=== PATIENT | female | born 1985 | race Caucasian/White ===

== ENCOUNTER → 2020-10-28 04:08 | Outpatient (CLI) | payer OTHER, SELFPAY ==
[2020-10-28 20:12] LABS: SARS-CoV-2 RNA PCR Negative
== END ==
PROVIDERS: Physician Assistant; PCP Family Medicine; Visit Provider Family Medicine
DX: R07.89 Other chest pain (principal); Z20.822 Contact with and (suspected) exposure to COVID-19
CPT/HCPCS: C9803; U0003; U0005

== ENCOUNTER → 2020-11-23 15:52 | Outpatient (CLI) | payer OTHER, SELFPAY ==
--- NOTE | ~2020-11-23 | MM_ITS ---
EXAMINATION: MM screening ayan BI w elvira HISTORY: Screening TECHNIQUE: Craniocaudal and mediolateral oblique 3-D tomosynthesis images were obtained and synthetic 2-D images were generated. CAD analysis was submitted and interpreted. COMPARISON: No prior mammogram is available for comparison at this institution. BREAST PARENCHYMAL COMPOSITION: The breasts are heterogeneously dense, which may obscure small masses . FINDINGS: There is no evidence of suspicious mass, calcification, or architectural distortion to sugg est malignancy in either breast. There has been no suspicious interval change. IMPRESSION: 1. No mammographic evidence of malignancy. 2. Recommend routine screening mammography in one year. BI-RADS Category 1: Negative Reviewed, dictated and finalized at location A.
== END ==
PROVIDERS: PCP Family Medicine; Visit Provider Family Medicine
DX: Z12.31 Encounter for screening mammogram for malignant neoplasm of breast (principal)
CPT/HCPCS: 77063; 77067

== ENCOUNTER 2024-07-28 15:14 | Outpatient (CLI) | payer OTHER, SELFPAY ==
--- NOTE | ~2024-07-28 | MM_ITS ---
EXAMINATION: MM screening ayan BI w elvira HISTORY: Screening TECHNIQUE: Craniocaudal and mediolateral oblique 3-D tomosynthesis images were obtained and synthetic 2-D images were generated. CAD analysis was submitted and interpreted. COMPARISON: No prior mammogram is available for comparison at this institution. BREAST PARENCHYMAL COMPOSITION: Dense: The breasts are heterogeneously dense, which may obscure small masses FINDINGS: There is no evidence of suspicious mass, calcification, or architectural distortion to sugg est malignancy in either breast. There has been no suspicious interval change. IMPRESSION: 1. No mammographic evidence of malignancy. 2. Recommend routine screening mammography in one year. BI-RADS Category 1: Negative Reviewed, dictated and finalized at location B.
--- OUTSIDE RECORDS SUMMARY | 2024-07-28 15:18 | XMS_ITS | Clinical Summary ---
Author Organization [facility] Virtual Care Address [address] [place] [phone] Phone Care Team Providers Care Stranner Name Role Phone Kyle Urena MD Primary Care Provider Allergies No known active allergies Medications ALBUTEROL, BULK, MISC 5 Active fexofenadine (Keiko Allergy) 180 mg tablet 3 Active om 0-bll-ttc-B12-F P-J3-auubduf 500 mg-500 mcg -1 mg-12.5 mg capsule Take by mouth Active calcium carb/D3/magnesi um/zinc (calcium carb-D3-mag llz93-dxcj) [phone] ud-ktdu-kk-mg tablet Take by mouth Active busPIRone (BUSPAR) 5 mg tabletIndicatio ns:Generalized Anxiety Disorder Take 1 tablet (5 mg total) by mouth 3 (three) times a day Active cetirizine (ZyrTEC) 10 mg chewable tablet Take 1 tablet (10 mg total) by mouth daily Active fluticasone propionate (FLONASE) 50 mcg/actuation nasal spray Administer 1 spray into each nostril daily Active amoxicillin-cla vulanate (AUGMENTIN) 875-125 mg per tablet Take 1 tablet by mouth 2 (two) times a day for 10 days 20 tablet 5 08/06/19 25 Active mupirocin (BACTROBAN) 2 % ointment Apply topically 3 (three) times a day 22 g 5 Active Active Problems Problem Noted Date Diagnosed Date Symptomatic reticular veins 09/16/2023 Assessment & Plan (09/16/2023 1:10 PM CDT): Area painful reticular vein to the right posterior thigh. No obvious varicosities. Will need a referral to Dr. Gustafson for sclerotherapy. Encounters Date Type Department Care Team Description 07/27/2024 9:45 AM CDT Ancillary Procedure [facility] Imaging at [address] [phone] Dog bite of right hand, initial encounter 07/27/2024 Results Follow-Up [facility]ient Care at [address] [phone] Britta Hernadez PA XR Hand Right 3+ Vw 07/26/2024 10:45 AM CDT Office Visit [facility] Convenient Care at [address] [phone] Britta Hernadez PA Dog bite of right hand, initial encounter (Primary Dx) from Last 3 Months Immunizations Immunization Administration Dates Next Due Tdap 07/26/2024 Surgical History Surgery Date Site/Laterality Comments BREAST SURGERY reduction Medical History Medical History Date Comments Allergic Asthma Social History Tobacco Use Types Packs/Day Years Used Date Smoking Tobacco: Never Smokeless Tobacco: Never Tobacco Cessation:Counseling Given: Not Answered Comments Unknown Sex and Gender Information Value Date Recorded Sex Assigned at Not on file 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 Gender Identity Female 07/11/2022 8:25 AM CDT Sexual Orientation Choose not to disclose 2022 8:25 AM CDT Obstetrics History Last Filed Vital Signs Vital Sign Reading Time Taken Comments Blood Pressure 102/72 07/26/2024 10:23 AM CDT Pulse 95 07/26/2024 10:23 AM CDT Temperature 37 C (98.6 F) 07/26/2024 10:23 AM CDT Respiratory Rate 20 07/26/2024 10:23 AM CDT Oxygen Saturation 99% 07/26/2024 10:23 AM CDT Inhaled Oxygen Concentration - - Weight 59 kg (130 lb) 07/26/2024 10:23 AM CDT Height 154.9 cm (5' 1 ) 07/23/2022 1:13 PM CDT Body Mass Index 24.56 07/23/2022 1:13 PM CDT Plan of Treatment Health Maintenance Due Date Last Done Comments Cervical Cancer Screening 1984 Depression Screening 1984 Hepatitis C Screening 1984 Varicella Vaccines (1 of 2 - 13+ 2-dose series) 1997 Hepatitis B Screening 2002 Regular Well Visit/Exam 18-64 2002 Covid-19 Vaccine (4 - 2023-2 5 season) 2023 01/28/2021, 05/14/2020, 04/06/2020 DTaP/Tdap/Td Vaccine (2 - Td or Tdap) 07/26/2034 07/26/2024 Influenza Vaccine Completed 01/03/2024, 02/06/2015 HPV Vaccines Aged Out No longer eligi ble based on patient's age to complete this topic Pneumococcal vaccine <65 Aged Out No longer eligible based on patient's age to complete this topic Procedures Procedure Name Priority Date/Time Associated Diagnosis Comments XR HAND RIGHT 3 OR MORE VIEWS Schedule Routine, Read Routine (OP Routine) 07/27/2024 9:27 AM CDT Dog bite of right hand, initial encounter from Last 3 Months Results * XR Hand Right 3+ Vw (07/27/2024 9:27 AM CDT) Anatomical Region Laterality Modality Upper Extremities, Hand Right Digital Radiography 07/27/2024 1:40 PM CDT Narrative 07/27/2024 1:41 PM CDT EXAM DESCRIPTION: XR HAND RIGHT 3 OR MORE VIEWS REASON FOR STUDY: dog bite Pt complains of 3rd and 4th digit pain after a dog bite x 2 days ago. No prior fx or surgery TECHNIQUE: Three views COMPARISON: None available FINDINGS: No acute fracture or dislocation. No lytic or destructive process. Joint spaces are maintained. Soft tissues unremarkable without radiopaque foreign body. IMPRESSION: No acute findings right hand. THIS IS AN ELECTRONICALLY VERIFIED FINAL REPORT 07/27/2024 1:41 PM - Electronically signed by Carlos Cohn M.D. RB T: Report ID: [id number] Reading Location: [id number] Procedure Note Carlos Cohn MD - 07/27/2024 EXAM DESCRIPTION: XR HAND RIGHT 3 OR MORE VIEWS REASON FOR STUDY: dog bite Pt complains of 3rd and 4th digit pain after a dog bite x 2 days ago. Noprior fx or surgery TECHNIQUE: Three views COMPARISON: None available FINDINGS: No acute fracture or dislocation. No lytic or destructive process. Joint spaces are maintained. Soft tissues unremarkable without radiopaque foreign body. IMPRESSION: No acute findings right hand. THIS IS AN ELECTRONICALLY VERIFIED FINAL REPORT 07/27/2024 1:41 PM - Electronically signed by Carlos JONES T: Report ID: [id number] Reading Location: [id number] [facility] XR PROCEDURES Final Result from Last 3 Months Insurance [employer] CIGNA Care Teams Stranner Relationship Specialty Start Date End Date Kyle Urena MD [address] [address] PCP - General Family Medicine 09/03/23
--- OUTSIDE RECORDS SUMMARY | 2024-07-28 15:18 | XMS_ITS | Encounter Summary ---
Author Organization [facility] Healthcare Address [address] [place] [address] Care Team Providers Care Source Water Protection Specialist Name Role Phone Kyle Urena MD Primary Care Provider Reason for Visit * Diagnostic Imaging (Routine) - Closed Specialty Diagnoses / Procedures Referred By Contac t Referred To Contact Diagnoses Dog bite of right hand, initial encounter Procedures XR Hand Right 3+ Vw Britta Hernadez PA [address] [place] [id number] Phone: tel: fax: [facility] Medical Group Referral ID Status Reason Start Date Expiration Date Visits Re quested Visits Authorized [id number] Closed 07/26/2024 08/25/2025 1 1 Encounter Details Date Type Department Care Team (Latest Contact Info) Description 07/27/2024 9:45 AM CDT Ancillary Procedure [facility] Medical Group Imaging at [address] [phone] Dog bite of right hand, initial encounter Social History Tobacco Use Types Packs/Day Years Used Date Smoking Tobacco: Never Smokeless Tobacco: Never Comments Unknown Sex and Gender Information Value Date Recorded Sex Assigned at Not on file 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 RB T: Report ID: [id number] Reading Location: [id number] Procedure Note Carlos Cohn MD - 07/27/2024 [...] Carlos Cohn M.D. RB T: Report ID: [id number] Reading Location: [id number] [facility] XR PROCEDURES Final Result documented in this encounter Visit Diagnoses Diagnosis Dog bite of right hand, initial encounter documented in this encounter Care Teams Source Water Protection Specialist Relationship Specialty Start Date End Date Kyle Urena MD [address] [facility] [address] [place] [address] PCP - General Family Medicine 09/03/23 documented as of this encounter
--- OUTSIDE RECORDS SUMMARY | 2024-07-28 15:18 | XMS_ITS | Clinical Summary ---
Author Organization [facility] [address] - 2022 Address [address] [facility] [address] [place] [address] Phone Care Team Providers Care Paediatric Surgeon Name Role Phone Kyle Urena MD Primary Care Provider [phone] Social History Tobacco Use Types Packs/Day Years Used Date Smoking Tobacco: Never Assessed Comments Unknown Sex and Gender Information Value Date Recorded Sex Assigned at Not on file Legal Sex Female 10:17 AM CDT Gender Identity Not on file Sexual Orientation Not on file Plan of Treatment Health Maintenance Due Date Last Done Comments DTAP/TDAP/TD VACCINES (1 - Tdap) 07/29/2003 HEPATITIS B VACCINES (1 of 3 - 19+ 3-dose series) 07/29/2003 HPV/Cotest (21-29) 2005 CERVICAL CANCER SCREENING 2014 HPV/Cotest (30-65) 2014 PAP SMEAR 2014 INFLUENZA VACCINE (#1) 2023 BREAST CANCER SCREENING 2024 HPV VACCINES Aged Out No longer eligi ble based on patient's age to complete this topic Insurance [facility] OPEN ACCESS HMO RX ALLWIN DATA Medicare Part B Care Teams Paediatric Surgeon Relationship Specialty Start Date End Date Kyle Urena MD PCP - General Family Practice 08/02/15
--- OUTSIDE RECORDS SUMMARY | 2024-07-28 15:18 | XMS_ITS | Continuity of Care Document ---
Author Organization [facility] Address [address] [place] [address] Phone Care Team Providers Care Automobile Locator Name Role Phone Unavailable Unavailable Unavailable Advance Directives Directive Yes / No Effective Date File Name No Information Encounters Encounter Description Practice Location Reason(s) For Visit Diagnoses Date Provider Providers Copied on Encounter [facility], [address] [facility], [place], [place], [id number], [place] tel:[phone] [facility] No Information No Information Referring Provider: VIK Patel, [address], [place], [address]. tel:[phone] Family History Family Member Type Diagnosis Age At Onset No Information Payers Payer name Insurance type Covered democrat ID Authoriza tion(s) No Information Social History Type Description Quantity Date Captured Comments Sex Female Smoking Status No Information Chief Complaint And Reason For Visit No Information History Of Present Illness Encounter Date Complaint History Of Prese nt Illness No Information Instructions Date Instruction Additional Infor mation No Information Assessments Type Assessment Date No Information
--- OUTSIDE RECORDS SUMMARY | 2024-07-28 15:18 | XMS_ITS | Clinical Summary ---
Author Organization [facility] Address [address] [place] [address] Care Team Providers Care Internal Combustion Engine Inspector Name Role Phone Kyle Urena MD Primary Care Provider [phone] Source Comments [facility],non-owned Affiliates and Associated Physician Practices is amultiple site organization consisting of ambulatory clinics and hospital sitesin [place], [place], [place] and [place]. This disclosure is being madepursuant to the Care Everywhere program and may not contain all information available regarding this patient. Last updated 17.[facility] Allergies No known active allergies Medications * Be aware that medications may not be up to date on this document. Alwaysverify current medications with the patient. norethindrone (JOLIVETTE) 0.35 MG tablet Take 1 tablet by mouth once daily Active albuterol HFA (PROVENTIL;RUBÉN VALERIO;PROAIR) 108 (90 BASE) MCG/ACT inhaler Inhale 2 puffs by mouth every 6 hours as needed Active BUDESONIDE NA Active Family History Medical History Relation Name Comments COPD - Chronic Obstructive P ulmonary Disease Father hx of smoking Other Father heart valve rep lacement due to blood infection Diabetes - Type 2 Mother Hypertension Mother Relation Name Status Comments Father Mother Social History Tobacco Use Types Packs/Day Years Used Date Smoking Tobacco: Never Smokeless Tobacco: Never Comments No Sex and Gender Information Value Date Recorded Sex Assigned at Not on file Legal Sex Female 12:42 PM MEDICINE AND HEALTH SERVICE MANAGER Gender Identity Not on file Sexual Orientation Not on file Last Filed Vital Signs Vital Sign Reading Time Taken Comments Blood Pressure 110/68 01/16/2017 4:01 PM MEDICINE AND HEALTH SERVICE MANAGER Pulse 100 01/16/2017 4:01 PM MEDICINE AND HEALTH SERVICE MANAGER Temperature 36.8 C (98.3 F) 01/16/2017 4:01 PM MEDICINE AND HEALTH SERVICE MANAGER Respiratory Rate 16 01/16/2017 4:01 PM MEDICINE AND HEALTH SERVICE MANAGER Oxygen Saturation 98% 01/16/2017 4:01 PM MEDICINE AND HEALTH SERVICE MANAGER Inhaled Oxygen Concentration - - Weight 68.5 kg (151 lb) 01/16/2017 4:01 PM MEDICINE AND HEALTH SERVICE MANAGER Height 154.9 cm (5' 1 ) 01/16/2017 4:01 PM MEDICINE AND HEALTH SERVICE MANAGER Body Mass Index 28.53 01/16/2017 4:01 PM MEDICINE AND HEALTH SERVICE MANAGER Plan of Treatment Health Maintenance Due Date Last Done Comments HIV SCREENING 07/29/1999 HEPATITIS C SCREENING 07/24/2002 DTAP/TDAP/TD VACCINES (1 - Tdap) 07/29/2003 HEPATITIS B VACCINE (1 of 3 - 19+ 3-dose series) 07/29/2003 COVID-19 VACCINE ( - 2023-2 5 season) 2023 DEPRESSION SCREENING 03/11/2024 INFLUENZA VACCINE (Season Ended) 2024 ZOSTER VACCINE (1 of 2) 2034 HIB VACCINE Aged Out No longer eligi ble based on patient's age to complete this topic HPV VACCINE Aged Out No longer eligi ble based on patient's age to complete this topic MENINGOCOCCAL (Group B) VACC INE SHARED DECISION-MAKING Aged Out No longer eligibl e based on patient's age to complete this topic MENINGOCOCCAL GROUPS A/C/Y/W VACCINE Aged Out No longer eligible b ased on patient's age to complete this topic PNEUMOCOCCAL VACCINE Aged Out No long er eligible based on patient's age to complete this [place] [address] [id number] [facility] Care Teams Internal Combustion Engine Inspector Relationship Specialty Start Date End Date Kyle Urena MD [address] [place] [address] PCP - General Family Medicine 01/16/17
--- OUTSIDE RECORDS SUMMARY | 2024-07-28 15:18 | XMS_ITS | Encounter Summary ---
Author Organization [facility] Healthcare Address [address] [place] [address] Care Team Providers Care Fermentation Engineer Name Role Phone Kyle Urena MD Primary Care Provider Encounter Details Date Type Department Care Team (Late st Contact Info) Description 07/27/2024 Results Follow-Up [facility] Medical Group Convenient Care at [address] [phone] Britta Hernadez PA [address] [place] [address] [address] [place] [address] XR Hand Right 3+ Vw Social History Tobacco Use Types Packs/Day Years Used Date Smoking Tobacco: Never Smokeless Tobacco: Never Comments Unknown Sex and Gender Information Value Date Recorded Sex Assigned at Not on file 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
--- OUTSIDE RECORDS SUMMARY | 2024-07-28 15:18 | XMS_ITS | Referral Summary ---
Author Organization [facility] Virtual Care Address [address] [place] [phone] Phone Care Team Providers Care Crystal Mounter Name Role Phone Kyle Uerna MD Primary Care Provider Encounters Date Type Department Care Team Description 07/27/2024 Results Follow-Up [facility] Medical [facility] Convenient Care at [address] [phone] Britta Hernadez PA XR Hand Right 3+ Vw 07/27/2024 9:45 AM CDT Ancillary Procedure [facility] Imaging at [address] [phone] Dog bite of right hand, initial encounter 07/26/2024 10:45 AM CDT Office Visit [facility] Convenient Care at [address] [phone] Britta Hernadez PA Dog bite of right hand, initial encounter (Primary Dx) from Last 3 Months Allergies No known active allergies Medications ALBUTEROL, BULK, MISC 5 Active fexofenadine (Keiko Allergy) 180 mg tablet 3 Active om 1-uvw-brt-B12-F N-L5-nlvudky 500 mg-500 mcg -1 mg-12.5 mg capsule Take by mouth Active calcium carb/D3/magnesi um/zinc (calcium carb-D3-mag zbf18-tkbd) [id number] as-ckoy-po-mg tablet Take by mouth Active busPIRone (BUSPAR) [...] a referral to Dr. Gustafson for sclerotherapy. Immunizations Immunization Administration Dates Next Due Tdap 07/26/2024 Social History Tobacco Use Types Packs/Day Years Used Date Smoking Tobacco: Never Smokeless Tobacco: Never Tobacco Cessation:Counseling Given: Not Answered Comments Unknown Sex and Gender Information Value Date Recorded Sex Assigned at Not on file Legal Sex Female 1:[address] Gender Identity Female 07/11/2022 8:25 AM CDT Sexual Orientation Choose not to disclose 2022 8:25 AM CDT Last Filed Vital Signs Vital Sign Reading [...] 07/23/2022 1:13 PM CDT Plan of Treatment Not on file Procedures Procedure Name Priority Date/Time Associated Diagnosis [...] signed by Carlos JONES T: Report ID: [id number] Reading Location: [id number] Procedure Note Carlos Cohn MD - 07/27/2024 [...] Carlos Cohn M.D. RB T: Report ID: [id number] Reading Location: [place] [address] [facility] XR PROCEDURES Final Result from Last 3 Months Insurance [employer] CIGNA CIGNA Care Teams Crystal Mounter Relationship Specialty Start Date End Date Kyle Urena MD [address] [facility] [address] [place] [address] PCP - General Family Medicine 09/03/23
== END 2024-07-28 15:15 | disposition home or self-care (01) ==
LOC: ANHIMG 15:16
PROVIDERS: PCP Family Medicine; Visit Provider Obstetrics & Gynecology Gynecology
DX: Z12.31 Encounter for screening mammogram for malignant neoplasm of breast (principal)
CPT/HCPCS: 77063; 77067

== ENCOUNTER 2024-12-11 11:17 | Outpatient (CLI) | payer OTHER, SELFPAY ==
--- NOTE | ~2024-12-11 | US_ITS ---
EXAMINATION: US pelvic complete DATE: 12/11/2024 INDICATION: Abnormal uterine bleeding. TECHNIQUE: Multiple transabdominal sonographic images of the pelvis were obtained. COMPARISON: None. FINDINGS: The uterus measures 8.7 x 3.9 x 4.6 cm. There is no free fluid in the pelvis. The endometrial complex measures 9 mm in thickness. The right ovary measures 2.4 x 2.5 x 2.6 cm. The left ovary measures 3.0 x 2.1 x 2.5 cm. There is normal vascular flow in the ovaries. IMPRESSION: 1. Normal pelvis. Reviewed, dictated and finalized at location E. IMPRESSION: 1. Normal pelvis.
== END 2024-12-11 11:18 | disposition home or self-care (01) ==
LOC: MICIMG 11:19
PROVIDERS: PCP Family Medicine
DX: N93.8 Other specified abnormal uterine and vaginal bleeding (principal)
CPT/HCPCS: 76856